=== PATIENT | female | born 1965 | race Caucasian/White ===

== ENCOUNTER 2018-05-25 10:09 | Emergency (ER) | payer MEDICAID ==
[~2018-05-25] VITALS: Ht 149.9 cm; Wt 117.9 kg
[2018-05-25 10:10] VITALS: BP_SYST 157
[2018-05-25] MEDS ORDERED: MORPHINE 4 MG/ML INJ. SYRINGE IVP ONE (10:45)
[2018-05-25 12:17] VITALS: BP_SYST 139
[2018-05-25] MEDS ORDERED: MORPHINE 4 MG/ML INJ. SYRINGE IM ONE (13:45)
== END 2018-05-25 12:16 | disposition home or self-care (01) ==
LOC: SED 10:09
DX: G89.29 Other chronic pain (principal); M54.5 Low back pain; M79.672 Pain in left foot
CPT/HCPCS: 96372; 99283; J2270